=== PATIENT | female | born 1940 | race Caucasian/White ===

== ENCOUNTER 2018-08-09 11:01 | Emergency (ER) | payer MEDICARE, OTHER ==
[~2018-08-09] VITALS: Ht 160 cm; Wt 60.0 kg
[2018-08-09] MEDS ORDERED: APIX5TAB PO (11:40)
[2018-08-09] MEDS ORDERED: MONT10TA9 PO (11:44)
[2018-08-09] MEDS ORDERED: GABA400C PO (11:44)
[2018-08-09] MEDS ORDERED: DILT120T3 PO (11:44)
[2018-08-09] MEDS ORDERED: NADO20TA PO (11:44)
[2018-08-09] MEDS ORDERED: BUPR150T73 PO (11:44)
[2018-08-09] MEDS ORDERED: FLEC50TA25 PO (11:44)
[2018-08-09] MEDS ORDERED: HYDR12.53 PO (11:45)
[2018-08-09] MEDS ORDERED: SODIUM CHLORIDE FLUSH 10ML SYR IVF ONE (12:00)
[2018-08-09 12:14] LABS: BASOPHILS # (AUTO) 0.04 x10^3/uL (0-0.1); BASOPHILS % (AUTO) 1 % (0-1); EOSINOPHILS % (AUTO) 3 % (1-7); LYMPHOCYTES # (AUTO) 1.61 x10^3/uL (1-3.4); LYMPHOCYTES % (AUTO) 22 % (22-44); MD NO; MEAN CORPUSCULAR HEMOGLOBIN 31.5 pg (27.0-34.8); MEAN CORPUSCULAR HGB CONC 33.9 g/dL (32.4-35.8); MEAN CORPUSCULAR VOLUME 92.9 fL (80-100); MEAN PLATELET VOLUME 8.3 fL (7.4-10.4); MONOCYTES # (AUTO) 0.82 x10^3/uL (0.2-0.8); MONOCYTES % (AUTO) 11 % (2-9); NEUTROPHILS % (AUTO) 63 % (42-75); PLATELET COUNT 310 x10^3/uL (130-400); RED BLOOD COUNT 4.31 x10^6/uL (3.82-5.3); RED CELL DISTRIBUTION WIDTH 15.7 % (9.6-15.2)
[2018-08-09 12:17] LABS: ANION GAP 7 mmol/L (5-15); CALCIUM 8.6 mg/dL (8.5-10.1); CHLORIDE 103 mmol/L (98-107)
[2018-08-09 12:24] LABS: CREATININE 0.75 mg/dL (0.55-1.02); TROPONIN I < 0.015 ng/mL (0.000-0.045)
[2018-08-09] MEDS ORDERED: MORPHINE SULFATE 4 MG/ML, 1ML ONE (13:17)
[2018-08-09] MEDS ORDERED: ONDANSETRON 2MG/ML, 2ML IVPush ONE (13:30)
[2018-08-09] MEDS ORDERED: MORPHINE SULFATE 4 MG/ML, 1ML IVPush ONE (13:30)
[2018-08-09] MEDS ORDERED: OMNIPAQUE 350 MG/ML, 75ML BOTTLE ONE (13:50)
[2018-08-09 15:42] VITALS: BP 110/64
== END 2018-08-09 15:51 | disposition home or self-care (01) ==
LOC: ED 15:10
DX: S42.002A Fracture of unspecified part of left clavicle, initial encounter for closed fracture (principal); R05 Cough; I48.91 Unspecified atrial fibrillation; I10 Essential (primary) hypertension; Z79.899 Other long term (current) drug therapy; Z88.8 Allergy status to other drugs, medicaments and biological substances; Z95.0 Presence of cardiac pacemaker; W19.XXXA Unspecified fall, initial encounter; Y93.89 Activity, other specified; Y99.8 Other external cause status; Y92.89 Other specified places as the place of occurrence of the external cause
CPT/HCPCS: 36415; 71046; 71260; 72125; 73030; 80048; 82040; 83880; 84484; 85025; 93005; 96374; 96375; 99284; J2405; Q9967